=== PATIENT | female | born 1990 | race Two or more races ===

== ENCOUNTER 2025-05-09 10:12 | Emergency (ER) | payer OTHER ==
[~2025-05-09] VITALS: Ht 167.6 cm; Wt 96.6 kg
[2025-05-09] MEDS ORDERED: CLINDAMYCIN PHOSPHATE 150 MG/ML (600mg) IM ONE (12:15)
[2025-05-09] MEDS ORDERED: TETANUS & DIPHTHERIA TOX,ADULT 0.5 ML VIAL IM ONE (12:15)
[2025-05-09] MEDS ORDERED: CLINDAMYCIN PHOSPHATE 150 MG/ML (300mg) ONE (12:30)
[2025-05-09] MEDS ORDERED: DIPHTH,PERTUSS(ACELL),TET VAC 0.5 ML SYRINGE IM ONE (12:30)
== END 2025-05-09 15:34 | disposition home or self-care (01) ==
LOC: ER 10:13
DX: S61.326A Laceration with foreign body of right little finger with damage to nail, initial encounter (principal); W45.8XXA Other foreign body or object entering through skin, initial encounter; Y93.89 Activity, other specified; Y92.89 Other specified places as the place of occurrence of the external cause
CPT/HCPCS: 90471; 90714; 96372; 99282; J1670; J3490